=== PATIENT | male | born 1945 | race Caucasian/White ===

== ENCOUNTER 2023-02-06 07:41 | Day surgery (SDC) | payer MEDICARE ==
[~2023-02-06] VITALS: Ht 167.6 cm; Wt 111.7 kg
[~2023-02-06 07:41] MED LIST: BSS IRRIG/VANCO(10MG)/TOBRA(5MG)/EPINEPH(1:1000-0.5CC)500ML BAG-ORONLY IR ONE; CEFUROXIME 1MG/0.1ML INTRACAMERAL INJ As Ordered ONE; LIDOCAINE 1% SDV 5ML VIAL As Ordered ONE; LIDOCAINE 3.5 % 1ML OPHTH TOPICAL GEL OU ONE; MIDAZOLAM INJ 2MG/2ML VIAL As Ordered ONE; OFLOXACIN 0.3 % (OCUFLOX) OPTH SOL 5ML OD ONE; PHENYLEPHRINE 10% OPHTH SOL 5ML OD PRN; fentaNYL 100 MCG/2 ML INJECTION As Ordered ONE
[2023-02-06] MEDS: CYCLOPENTOLATE 1% OPHTH SOLN 2ML BTL OD SCH ×2 (09:29→09:31)
[2023-02-06] MEDS: TROPICAMIDE 1% OPHTH SOLN 15ML OD SCH ×2 (09:30→09:31)
[2023-02-06] MEDS: PHENYLEPHRINE 2.5% OPHTH SOL 2ML OD SCH ×2 (09:30→09:31)
[2023-02-06] MEDS ORDERED: LABETALOL 100MG/20ML VIAL As Ordered ONE (09:53)
[2023-02-06 10:05] VITALS: BP 155/98; TEMP 96.6; O2SAT 97
== END 2023-02-06 10:25 | disposition home or self-care (01) ==
LOC: M SDC 07:41
PROVIDERS: ATTEND Ophthalmology
DX: H25.11 Age-related nuclear cataract, right eye (principal); M19.90 Unspecified osteoarthritis, unspecified site
CPT/HCPCS: 66984; J0697; J1920; J2250; J3010; V2632

== ENCOUNTER 2023-02-20 13:03 | Day surgery (SDC) | payer MEDICARE ==
[~2023-02-20] VITALS: Ht 165.1 cm; Wt 110.2 kg
[~2023-02-20 13:03] MED LIST changes: +CYCLOPENTOLATE 1% OPHTH SOLN 2ML BTL OS SCH; -MIDAZOLAM INJ 2MG/2ML VIAL As Ordered ONE; -OFLOXACIN 0.3 % (OCUFLOX) OPTH SOL 5ML OD ONE; +OFLOXACIN 0.3 % (OCUFLOX) OPTH SOL 5ML OS ONE; -PHENYLEPHRINE 10% OPHTH SOL 5ML OD PRN; +PHENYLEPHRINE 10% OPHTH SOL 5ML OS PRN; +PHENYLEPHRINE 2.5% OPHTH SOL 2ML OS SCH; +TROPICAMIDE 1% OPHTH SOLN 15ML OS SCH; -fentaNYL 100 MCG/2 ML INJECTION As Ordered ONE
[2023-02-20] MEDS ORDERED: MIDAZOLAM INJ 2MG/2ML VIAL As Ordered ONE (14:59)
[2023-02-20] MEDS ORDERED: fentaNYL 100 MCG/2 ML INJECTION As Ordered ONE (15:02)
[2023-02-20 17:05] VITALS: BP 178/91; TEMP 97.6; O2SAT 99
== END 2023-02-20 17:27 | disposition home or self-care (01) ==
LOC: M SDC 13:03
PROVIDERS: ATTEND Ophthalmology
DX: H25.12 Age-related nuclear cataract, left eye (principal)
CPT/HCPCS: 66984; J0697; J2250; J3010; V2787